=== PATIENT | female | born 1995 | race African-American/Black ===

== ENCOUNTER 2020-09-30 03:14 | Emergency (ER) | payer OTHER, SELFPAY ==
[2020-09-30 03:21] VITALS: BP 146/104; PULSE 100; RESP 14; TEMP 36.9; O2SAT 99
[2020-09-30] MEDS: FAMOTIDINE 20 MG/2 ML VIAL IV PUSH (03:42)
[2020-09-30] MEDS: diphenhydrAMINE HCl INJ 50 MG/ML VIAL 25 MG IV PUSH (03:42)
[2020-09-30] MEDS: methylPREDNISolone SOD SUCC 125 MG VIAL IV PUSH (03:42)
[2020-09-30 03:48] LABS: Basophils Percent Auto 0.4 % (0.2-1.2); Eosinophils Absolute Auto 0.2 K/mm3 (0-0.3); Eosinophils Percent Auto 2.5 % (0-4.4); Hematocrit 37.9 % (37.0-47.0); Hemoglobin 12.7 g/dL (12.0-15.0); Immature Granulocyte Absolute 0.01 K/mm3 (0.00-0.031); Immature Granulocyte Percent A 0.1 % (0-0.5); Lymphocytes Absolute Auto 2.49 K/mm3 (0.9-3.2); Lymphocytes Percent Auto 33.2 % (18.3-44.2); Mean Corpuscular HGB Conc 33.5 g/dl (32-36); Mean Corpuscular Hemoglobin 29.1 pg (26-34); Mean Corpuscular Volume 86.7 fl (80-100); Mean Platelet Volume 11.6 fl (7.4-10.4); Monocytes Absolute Auto 0.8 K/mm3 (0.1-0.6); Monocytes Percent Auto 10.1 % (2.6-8.5); Neutrophils Percent Auto 53.7 % (45.5-73.1); Platelet Count Result 217 k/mm3 (150-375); Red Blood Count 4.37 M/mm3 (4.2-5.4); Red Cell Distribution Width 12.6 % (11.5-14.5); White Blood Count 7.5 K/mm3 (4.5-10.0)
[2020-09-30] MEDS: EPINEPHrine HCL INJ 1 MG/ML AMPUL 0.3 MG IM (03:48)
[2020-09-30 03:57] LABS: Anion Gap 9 mmol/L (8-16); Blood Urea Nitrogen 7 mg/dL (7-17); Calcium 9.1 mg/dL (8.4-10.2); Carbon Dioxide 24 mmol/L (22-30); Chloride 108 mmol/L (98-107); Estimated CRCL calculation 118 ml/min; Estimated Glomerular Filt Rate > 60; Glucose 118 mg/dL (65-105); Potassium 3.6 mmol/L (3.4-5.0); Sodium 141 mmol/L (137-145)
[2020-09-30 04:19] VITALS: BP 140/83; PULSE 96; RESP 18; O2SAT 99
[2020-09-30 05:57] VITALS: BP 159/86; PULSE 75; RESP 20; O2SAT 97
--- NOTE | 2020-09-30 06:03 | ED.SOB ---
HPI - SOB/Dyspnea General Chief Complaint: Shortness of Breath/Dyspnea Stated Complaint: SOB, Left sided facial swelling Time Seen by Provider: 09/30/20 03:19 History of Present Illness HPI Narrative: Patient is a 24-year-old female who presents ER with concerns for allergic reaction. She was seen in urgent care yesterday for left facial swelling. She was told it is allergic reaction given a prescription for prednisone. Reports this evening she woke up and she felt like she could not breathe that her throat was closing her cough. No fevers or chills or sweats. No swelling of the tongue or lips. Patient does not take any oral medications. She has not think she ate any foods that she is allergic to. Denies fevers or chills or sweats. Has not had symptoms like this previously. No change in voice. Tolerating oral secretions. Related Data Allergies Allergy/AdvReac Type Severity Reaction Status Date / Time No Known Allergies Allergy Verified 02/21/19 21:09 Review of Systems Review of Systems: All systems reviewed & are unremarkable except as noted in HPI and below Constitutional: Constitutional: Denies chills, Denies fever(s) and Denies weakness ENT: Denies dysphagia, Denies nasal congestion and Denies sore throat Respiratory: Respiratory: Reports cough, Reports dyspnea and Denies wheezing PMFSH Past Medical History Medical History (Updated 09/30/20 @ 06:27 by Joselito Butts MD) Healthy female Exam Narrative: Exam Narrative: GENERAL: Anxious-appearing, well-nourished, and in no acute distress. HEAD: Normocephalic, atraumatic. EYES: PERRL and EOMI. ENT: Mucous membranes moist. Normal-appearing tongue and lips. Normal-appearing posterior oropharynx with uvula midline and nonedematous. Tonsils identified and without edema as well. Tolerating oral secretions. Apical abscess over tooth #12. NECK: Supple. CHEST: Clear to auscultation. No respiratory distress. Occasional faint/shallow coughing. HEART: Regular rate and rhythm. Normal peripheral pulses. ABDOMEN: Soft, nontender, nondistended. EXTREMITIES: Normal range of motion. No edema. SKIN: Warm, dry, no rash. Swelling beneath the left eye. No erythema or blistering. NEURO: Alert and oriented x3 Course Course Emergency Course: On reevaluation patient reports she now feels a new bump inside of her mouth. Upon visualization patient has an apical abscess that has started to spontaneously drain. Facial swelling is improving. Patient will be started on antibiotics. Unlikely patient had any sort of allergic reaction or impending airway. Discharge home. Vital Signs Vital signs: Vital Signs Temperature 98.4 F 09/30/20 03:21 Pulse Rate 100 09/30/20 03:21 Respiratory Rate 14 09/30/20 03:21 Blood Pressure 146/104 H 09/30/20 03:21 Pulse Oximetry 99 09/30/20 03:21 Temperature 98.4 F 09/30/20 03:21 Pulse Rate 75 09/30/20 05:57 Respiratory Rate 20 09/30/20 05:57 Blood Pressure 159/86 H 09/30/20 05:57 Pulse Oximetry 97 09/30/20 05:57 MDM - SOB/Dyspnea Lab Data Result diagrams: 09/30/20 03:39 09/30/20 03:39 Labs: Lab Results 09/30/20 09/30/20 Range/Units 03:39 03:39 WBC 7.5 (4.5-10.0) K/mm3 RBC 4.37 (4.2-5.4) M/mm3 Hgb 12.7 (12.0-15.0) g/dL Hct 37.9 (37.0-47.0) % MCV 86.7 (80-100) fl MCH 29.1 (26-34) pg MCHC 33.5 (32-36) g/dl RDW 12.6 (11.5-14.5) % Plt Count 217 (150-375) k/mm3 MPV 11.6 H (7.4-10.4) fl Immature Gran % (Auto) 0.1 (0-0.5) % Neut % (Auto) 53.7 (45.5-73.1) % Lymph % (Auto) 33.2 (18.3-44.2) % [place] % (Auto) 10.1 H (2.6-8.5) % Eos % (Auto) 2.5 (0-4.4) % Baso % (Auto) 0.4 (0.2-1.2) % Lymph # (Auto) 2.49 (0.9-3.2) K/mm3 [place] # (Auto) 0.8 H (0.1-0.6) K/mm3 Eos # (Auto) 0.2 (0-0.3) K/mm3 Baso # (Auto) 0.0 (0.0-0.1) K/mm3 Abs Immat Gran (auto) 0.01 (0.00-0.031) K/mm3 Absolute Neuts (auto) 4.0
[2020-09-30 06:54] VITALS: BP 144/80; PULSE 72; RESP 20; O2SAT 98
== END 2020-09-30 06:57 | disposition home or self-care (01) ==
PROVIDERS: Emergency Provider Emergency Medicine
DX: K04.7 Periapical abscess without sinus (principal); R06.02 Shortness of breath
CPT/HCPCS: 36415; 80048; 85025; 96372; 96374; 96375; 99284; J0171; J1200; J2930

== ENCOUNTER 2020-10-01 15:06 | Emergency (ER) | payer OTHER, SELFPAY ==
[2020-10-01 15:09] VITALS: BP 126/73; PULSE 72; RESP 20; TEMP 36.7; O2SAT 99
[2020-10-01 15:30] LABS: Basophils Percent Auto 0.1 % (0.2-1.2); Hematocrit 37.3 % (37.0-47.0); Hemoglobin 12.7 g/dL (12.0-15.0); Immature Granulocyte Absolute 0.09 K/mm3 (0.00-0.031); Immature Granulocyte Percent A 0.6 % (0-0.5); Lymphocytes Absolute Auto 1.25 K/mm3 (0.9-3.2); Lymphocytes Percent Auto 8.5 % (18.3-44.2); Mean Corpuscular Hemoglobin 29.1 pg (26-34); Mean Corpuscular Volume 85.6 fl (80-100); Mean Platelet Volume 11.4 fl (7.4-10.4); Monocytes Absolute Auto 0.5 K/mm3 (0.1-0.6); Monocytes Percent Auto 3.1 % (2.6-8.5); Neutrophils Absolute Auto 12.9 K/mm3 (1.3-6.7); Neutrophils Percent Auto 87.7 % (45.5-73.1); Platelet Count Result 253 k/mm3 (150-375); Red Blood Count 4.36 M/mm3 (4.2-5.4); Red Cell Distribution Width 12.8 % (11.5-14.5); White Blood Count 14.7 K/mm3 (4.5-10.0)
[2020-10-01 15:41] LABS: Alanine Aminotransferase 21 U/L (4-35); Albumin Level 4.5 g/dL (3.5-5.1); Alkaline Phosphatase 80 U/L (38-126); Anion Gap 10 mmol/L (8-16); Aspartate Amino Transferase 24 U/L (14-36); Bilirubin,Total 0.2 mg/dL (0.2-1.3); Blood Urea Nitrogen 9 mg/dL (7-17); Calcium 9.2 mg/dL (8.4-10.2); Carbon Dioxide 23 mmol/L (22-30); Chloride 108 mmol/L (98-107); Estimated CRCL calculation 119 ml/min; Estimated Glomerular Filt Rate > 60; Glucose 117 mg/dL (65-105); Lipase 60 U/L (23-300); Potassium 3.8 mmol/L (3.4-5.0); Sodium 141 mmol/L (137-145)
[2020-10-01 16:14] LABS: Add Urine Microscopic? YES; Appearance Urine Clear (Clear); Bilirubin Urine Negative (Negative); Blood Urine 3+ (Negative); Color Urine Yellow (Yellow); Glucose Urine UA Negative (Negative); Ketones Urine Negative (Negative); Leukocyte Esterase Ur Negative LEU/UL (Negative); Mucus Urine Few /lpf; Nitrate Urine Negative (Negative); Protein Urine Negative (Negative); RBC Urine >75 /hpf (0-2); Specific Grav Ur 1.027 (1.001-1.035); Squamous Epithelial Cell Urine Occasional /hpf (Few); Urobilinogen Urine Negative mg/dL (<2.0); WBC Urine 0-3 /hpf
[2020-10-01 17:12] VITALS: BP 127/76; PULSE 62; RESP 16; O2SAT 100
--- NOTE | 2020-10-01 17:21 | ED.NAVMDI ---
HPI - Nausea/Vomiting/Diarrhea General Chief complaint: Nausea/Vomiting/Diarrhea Stated complaint: n/v/d, sob Time Seen by Provider: 10/01/20 16:27 Source: patient Mode of arrival: ambulatory Limitations: no limitations History of Present Illness HPI Narrative: Patient is a 24-year-old female who presents complaining of nausea, vomiting, and diarrhea starting this a.m. Patient was seen and treated yesterday with dental abscess and facial swelling. Patient was started on Augmentin at that time. Patient reports nausea, vomiting and diarrhea after taking Augmentin this a.m. She denies abdominal pain. She denies facial pain or swelling. She denies all other complaints at this time. MD elicited complaint: nausea, vomiting and diarrhea Related Data Allergies Allergy/AdvReac Type Severity Reaction Status Date / Time No Known Allergies Allergy Verified 10/01/20 15:11 Review of Systems Review of Systems: Narrative: CONSTITUTIONAL: Denies fever, chills, or sweats. EYES: Denies visual changes, redness, or discharge. ENT: Denies rhinorrhea, congestion, sore throat, or otalgia. CARDIOVASCULAR: Denies chest pain, palpitations, or edema. RESPIRATORY: Denies cough or dyspnea. GASTROINTESTINAL: Reports nausea, vomiting, and diarrhea. GENITOURINARY: Denies dysuria or hematuria. SKIN: Denies rash or itching. MUSCULOSKELETAL: Denies back pain, joint pain, or myalgia. NEUROLOGIC: Denies headache, numbness, dizziness, or weakness. PSYCHIATRIC: Denies anxiety or depression. [facility] Past Medical History Medical History Healthy female Social History Social History (Updated 10/01/20 @ 17:27 by CAR Rivas) Smoking status: Never smoker Alcohol intake: current Alcohol use details: Occasional Substance use: never Comments At the time of signature, I have reviewed and agree with nursing past medical, surgical, social, and family history unless otherwise noted. Please see nursing chart for further information. There is no relevant family history pertinent to the presenting complaint. Exam Narrative: Exam Narrative: GENERAL: Well-appearing, well-nourished, and in no acute distress. HEAD: Normocephalic, atraumatic. EYES: EOMI. No redness or drainage. Conjunctiva are normal. ENT: Mucous membranes pink and moist. Apical abscess at tooth 12. No facial edema. Throat normal. Uvula midline. NECK: AROM. Supple. No lymphadenopathy. CHEST: No respiratory distress. HEART: Regular rate and rhythm. . GI: Soft, nontender without rebound, or guarding. No distention. Bowel sounds normal in all quadrants. MUSCULOSKELETAL: No bony tenderness. EXTREMITIES: Normal range of motion. No edema. SKIN: Warm, dry, no rash. NEURO: No focal deficits. Alert and oriented x3. Gait steady. PSYCH: Normal affect. No signs of depression or anxiety. Course Vital Signs Vital signs: Vital Signs Temperature 36.7 C 10/01/20 15:09 Pulse Rate 72 10/01/20 15:09 Respiratory Rate 20 10/01/20 15:09 Blood Pressure 126/73 10/01/20 15:09 Pulse Oximetry 99 10/01/20 15:09 Temperature 36.7 C 10/01/20 15:09 Pulse Rate 62 10/01/20 17:12 Respiratory Rate 16 10/01/20 17:12 Blood Pressure 127/76 10/01/20 17:12 Pulse Oximetry 100 10/01/20 17:12 Reviewed MDM - Nausea/Vomiting/Diarrhea MDM Narrative Medical decision making narrative: Patient's vital signs stable. Labs are unremarkable. Discussed with patient most likely related to the antibiotic that she is taking. Discussed adding an antinausea medicine with the Augmentin. Patient reports that she would like a different antibiotic. Patient will be started on clindamycin at this time. Patient is stable for discharge to home with outpatient follow-up as discussed. Differential Diagnosis Differential diagnosis: Likely food poisoning, gastroenteritis, drug-induced nausea and vomiting and dehydration Medical Records
[2020-10-01] MEDS: ONDANSETRON HCL ODT 4 MG TABLET PO (17:41)
== END 2020-10-01 17:43 | disposition home or self-care (01) ==
PROVIDERS: Emergency Medicine; Emergency Provider Nurse Practitioner
DX: R11.2 Nausea with vomiting, unspecified (principal); T36.0X5A Adverse effect of penicillins, initial encounter
CPT/HCPCS: 36415; 80053; 81001; 81025; 83690; 85025; 99283; A9270

== ENCOUNTER 2021-08-07 09:19 | Emergency (ER) | payer OTHER, SELFPAY ==
--- NOTE | ~2021-08-07 | XR_ITS ---
EXAMINATION: XR chest 1V portable DATE: 08/07/2021 09:37 INDICATION: Cough. Dyspnea. TECHNIQUE: A single frontal view of the chest was obtained. COMPARISON: CT abdomen and pelvis 02/21/2019 FINDINGS: There is no pneumonia, pleural effusion, or pneumothorax. The heart size is normal. IMPRESSION: 1. No acute cardiopulmonary disease. Reviewed, dictated and finalized at location A.
[2021-08-07 09:22] VITALS: BP 130/87; PULSE 100; RESP 17; TEMP 36.6; O2SAT 100
[2021-08-07 10:26] LABS: Influenza A QL RT-PCR Negative (Negative); Influenza B QL RT-PCR Negative (Negative); SARS-CoV-2 RNA PCR Positive
--- NOTE | 2021-08-07 10:35 | ED.URI ---
HPI - URI/Sore Throat General Chief Complaint: Upper Respiratory Infection Stated Complaint: cold symptoms Time Seen by Provider: 08/07/21 10:10 Source: patient Mode of arrival: ambulatory Limitations: no limitations History of Present Illness HPI Narrative: Pt is a 25 y/o female, presents to ED via POV with 3-4 day hx of URI symptoms, including nasal congestion, posterior rhinorrhea, dry cough and fevers/chills. Her last fever was last HS. She denies associated CP, SOB, abdominal pain, NVDC Or urinary symptoms. She has no known sick contacts or COV exposures. She is vaccinated for COV 19 MD elicited complaint: fever, cough, rhinorrhea and nasal congestion Onset (ago): day(s) (3) Consistency: constant Severity: mild Description of mucous: clear Able to tolerate fluids by mouth: Yes Exacerbating factors: nothing Relieving factors: nothing Associated symptoms: denies other symptoms (except as stated in HPI) Treatments prior to arrival: cold medicine Related Data Allergies Allergy/AdvReac Type Severity Reaction Status Date / Time No Known Allergies Allergy Verified 08/07/21 09:24 Review of Systems Review of Systems: All systems reviewed & are unremarkable except as noted in HPI and below ENT: Reports system reviewed and no additional complaints, except as documented and Reports as per HPI PMFSH Past Medical History Medical History Healthy female Social History Social History (Updated 10/01/20 @ 17:27 by Beata Alejo, CAR) Smoking status: Never smoker Alcohol intake: current Alcohol use details: Occasional Substance use: never Exam Const: General: no acute distress and alert Orientation/consciousness: patient oriented x3 HENMT: Head: normal to inspection Ears: TM's normal bilaterally General nose exam: Normal nares present Face and sinus: sinus tenderness maxillary Eyes: Conjunctivae: conjunctivae normal Pupils: Equal, round and reactive pupils present EOM: EOMs intact bilaterally Neck: Neck: normal visual inspection Chest: Chest palpation & inspection: normal inspection of the chest Resp: Effort & Inspection: normal respiratory effort Auscultation: clear to auscultation bilaterally Cardio: Rate: regular rate GI: GI Palp: Yes Soft to palpation Skin: General skin exam: normal color Rashes: no rashes Neuro: General: patient oriented x3, moves all extremities, no meningeal signs, no focal motor deficits and CN's II-XI intact bilaterally Cranial nerves: Yes Nystagmus not present Speech: normal speech Extrem: General: normal to inspection Psych: Appearance: grossly normal Mental Status: mental status grossly normal Affect: normal affect Attitude: cooperative Thought content: Yes Normal thought content present Course Course Emergency Course: Pts chest x ray and influenza are negative, COV is positive. Pt is low risk for severe illness and declines Paxlovid treatment. She is advised of plan to to treat with Cough suppressant, OTC vitamin D, C and Zinc are encouraged, pushing fluids, resting and inhaler for rescue if needed only. She will FU with her PCP in 1 week, returning to the ER if her condition worsens in any way Vital Signs Vital signs: Vital Signs Temperature 36.6 C 08/07/21 09:22 Pulse Rate 100 08/07/21 09:22 Respiratory Rate 17 08/07/21 09:22 Blood Pressure 130/87 08/07/21 09:22 Pulse Oximetry 100 08/07/21 09:22 Temperature 36.6 C 08/07/21 09:22 Pulse Rate 100 08/07/21 09:22 Respiratory Rate 17 08/07/21 09:22 Blood Pressure 130/87 08/07/21 09:22 Pulse Oximetry 100 08/07/21 09:22 MDM - URI/Sore Throat Differential Diagnosis Differential diagnosis: Likely upper respiratory infection, sinusitis, viral infection, influenza and other (COV 19) Medical Records Attestation: I reviewed the patient's medical records. Lab Data Attestation: I reviewed the patient's lab results. L
[2021-08-07 10:38] VITALS: O2SAT 98
== END 2021-08-07 10:48 | disposition home or self-care (01) ==
PROVIDERS: Emergency Medicine; Emergency Provider Nurse Practitioner Family
DX: U07.1 COVID-19 (principal)
CPT/HCPCS: 71045; 87502; 99283; C9803; U0003; U0005

== ENCOUNTER 2021-10-24 14:38 | Emergency (ER) | payer OTHER, SELFPAY ==
[2021-10-24] VITALS (12 sets, daily range): BP systolic 103–140; BP diastolic 59–72; PULSE 54–80; RESP 13–21; TEMP 36.3; O2SAT 95–100
--- NOTE | ~2021-10-24 | XR_ITS ---
LUMBAR SPINE INDICATION: Low back pain TECHNIQUE: 3 views lumbar spine COMPARISON: None FINDINGS: No fracture, subluxation or dislocation. No evidence for spondylolysis or spondylolisthesi s. Vertebral bodies and disk spaces are preserved. IMPRESSION: 1: No acute abnormality of the lumbar spine identified. Reviewed, dictated and finalized at location A.
--- NOTE | ~2021-10-24 | CT_ITS ---
EXAMINATION: CT BRAIN W/O DATE: 10/24/2021 17:13 INDICATION: Syncope TECHNIQUE: Computed tomography (CT) of the head was performed without intravenous contrast. The dose- length product was 605.33 mGy-cm. Automated exposure control and iterative reconstruction technique w ere employed. COMPARISON: No prior studies for comparison. FINDINGS: Normal brain parenchymal volume for age. Normal bustillos-white differentiation. No acute intrac ranial hemorrhage, infarction, mass or mass effect. No ventriculomegaly or midline shift. Midline sagittal images demonstrate a normal corpus callosum, c raniovertebral junction and sella turcica. Basilar cisterns are patent. Paranasal sinuses and mastoids are pneumatized. No depressed skull fractures. IMPRESSION: 1. No acute intracranial abnormality. Reviewed, dictated and finalized at location A.
--- NOTE | ~2021-10-24 | XR_ITS ---
XR thoracic spine 3V 10/24/2021 17:42 Indication: Lower thoracic pain Procedure: 3 views thoracic spine Comparison: No prior studies for comparison. Findings: Vertebral body heights are maintained. No fracture or traumatic malalignment. No paraspinal soft tissue abnormality. Pedicles intact. Surrounding osseous structures within normal limits. Impression: 1: No acute abnormality of the thoracic spine. Reviewed, dictated and finalized at location A. Impression: 1: No acute abnormality of the thoracic spine.
--- NOTE | 2021-10-24 14:46 | ECG_ITS ---
Measurements Intervals [place] Rate: 61 P: 38 TX: 139 QRS: 18 QRSD: 90 T: 7 QT: 388 QTc: 392 Interpretive Statements SINUS RHYTHM WITH SINUS ARRHYTHMIA BORDERLINE T WAVE ABNORMALITY- ANT/INF LEADS BORDERLINE ECG Electronically Signed On 10-24-2021 15:16:24 CDT by Willam Jenkins D.O.
[2021-10-24 15:15] LABS: Basophils Percent Auto 0.7 % (0.2-1.2); Eosinophils Absolute Auto 0.7 K/mm3 (0-0.3); Hematocrit 41.7 % (37.0-47.0); Hemoglobin 13.6 g/dL (12.0-15.0); Immature Granulocyte Absolute 0.01 K/mm3 (0.00-0.031); Immature Granulocyte Percent A 0.2 % (0-0.5); Lymphocytes Percent Auto 32.8 % (18.3-44.2); Mean Corpuscular HGB Conc 32.6 g/dl (32-36); Mean Corpuscular Hemoglobin 29.2 pg (26-34); Mean Corpuscular Volume 89.7 fl (80-100); Mean Platelet Volume 11.2 fl (7.4-10.4); Monocytes Absolute Auto 0.4 K/mm3 (0.1-0.6); Monocytes Percent Auto 6.2 % (2.6-8.5); Neutrophils Percent Auto 49.1 % (45.5-73.1); Platelet Count Result 232 k/mm3 (150-375); Red Blood Count 4.65 M/mm3 (4.2-5.4); Red Cell Distribution Width 13.1 % (11.5-14.5); White Blood Count 6.1 K/mm3 (4.5-10.0)
[2021-10-24 15:32] LABS: Alanine Aminotransferase 33 U/L (6-35); Albumin Level 4.4 g/dL (3.5-5.1); Alkaline Phosphatase 97 U/L (38-126); Anion Gap 8 mmol/L (8-16); Aspartate Amino Transferase 25 U/L (14-36); Bilirubin,Total 0.4 mg/dL (0.2-1.3); Blood Urea Nitrogen 9 mg/dL (7-17); Calcium 8.9 mg/dL (8.4-10.2); Carbon Dioxide 23 mmol/L (22-30); Chloride 110 mmol/L (98-107); Estimated CRCL calculation 78 ml/min; Estimated Glomerular Filt Rate > 60; Glucose 97 mg/dL (65-110); Potassium 3.8 mmol/L (3.4-5.0); Sodium 141 mmol/L (137-145)
--- NOTE | 2021-10-24 16:29 | ED.GENADULT ---
HPI - General Adult General Chief complaint: Nausea/Vomiting/Diarrhea Stated complaint: Lower Back Pain, Nausea Time Seen by Provider: 10/24/21 16:27 Source: patient Mode of arrival: ambulatory Limitations: no limitations History of Present Illness HPI narrative: Patient is a 25-year-old female who presents the ED with report of mid/lower back pain, nausea, and syncope. Patient reports having mid and low back pain for the past 1 week. 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 She has intermittently been taking ibuprofen at home. She also reports having nausea for the past 4 days. She denies any vomiting or abdominal pain. Denies any fever, chills, cough, cold symptoms, diarrhea, urinary symptoms. Today around 1230pm, while at a client's home, patient reports she had a syncopal episode. 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 Her client told her she lost consciousness for less than 1 minute. She did not fall from the chair or hit her head. She denies having any prodromal symptoms prior to the syncopal episode, but states she had dizziness afterwards for approximately 15 minutes. Denies dizziness currently. Denies any headache, vision changes, chest pain, difficulty breathing. Related Data Allergies Allergy/AdvReac Type Severity Reaction Status Date / Time No Known Allergies Allergy Verified 10/24/21 17:01 Review of Systems Review of Systems: CONSTITUTIONAL: Denies fever, chills, or sweats. EYES: Denies visual changes. ENT: Denies rhinorrhea, congestion, sore throat. CARDIOVASCULAR: Denies chest pain. RESPIRATORY: Denies cough or dyspnea. GASTROINTESTINAL: Reports nausea. Denies abdominal pain, vomiting, or diarrhea. GENITOURINARY: Denies dysuria or hematuria. MUSCULOSKELETAL: Reports mid/low back pain. NEUROLOGIC: Reports syncope, dizziness. Denies headache, HI, numbness, tingling, or weakness. All systems reviewed & are unremarkable except as noted in HPI and below PMFSH Past Medical History Medical History (Updated 10/24/21 @ 20:25 by Nancy Black PA-C) Healthy female No pertinent past medical history Surgical History Surgical History (Updated 10/24/21 @ 17:09 by Nancy Black PA-C) No pertinent past surgical history Social History Social History Smoking status: Never smoker Alcohol intake: current Alcohol use details: Occasional Substance use: never Exam Narrative: GENERAL: Well appearing, well-nourished, non-toxic, in no acute distress. HEAD: Normocephalic, atraumatic. EYES: PERRL/EOMI, conjunctivae clear bilaterally. No nystagmus. NECK: Supple. No adenopathy, no masses. RESPIRATORY: Airway patent, respirations nonlabored. Clear to auscultation bilaterally, no rales, rhonchi, wheezing. CARDIOVASCULAR: Regular rate and rhythm without murmurs, rubs, or gallops. Peripheral pulses 2+ and equal bilaterally. ABDOMINAL: Soft, no tenderness to palpation, nondistended, no hepatosplenomegaly. Normoactive BS. MUSCULOSKELETAL: Moves all extremities. Strength/ROM intact without gross deformities. Tenderness to palpation to lower thoracic, upper lumbar midline spine. SKIN: Warm, dry, normal color. No rashes. NEURO: A&O X3. Speech clear. Cranial nerves II-XII intact. Steady gait. No ataxic movements. Strength 5/5 in upper/lower ext bilaterally. PSYCHIATRIC: Appropriate mood and affect. Normal interaction. Course Vital Signs Vital signs: Vital Signs Temperature 97.4 F L 10/24/21 14:43 Pulse Rate 64 10/24/21 14:43 Respiratory Rate 16 10/24/21 14:43 Blood Pressure 140/59 L 10/24/21 14:43 Pulse Oximetry 100 10/24/21 14:43 Oxygen Delivery Room Air 10/24/21 14:43 Temperature 97.4 F L 10/24/21 14:43 Pulse Rate 64 10/24/21 14:43 Respiratory Rate 16 10/24/21 14:43 Blood Pressure 140/59 L
[2021-10-24] MEDS: SODIUM CHLORIDE 0.9% IV 1,000 ML 999 ML IV CONT (17:21)
[2021-10-24 17:29] LABS: Add Urine Microscopic? YES; Appearance Urine Cloudy (Clear); Bilirubin Urine 1+ (Negative); Blood Urine 3+ (Negative); Color Urine Red (Yellow); Glucose Urine UA Negative (Negative); Ketones Urine Trace mg/dL (Negative); Leukocyte Esterase Ur Negative LEU/UL (Negative); Nitrate Urine Negative (Negative); Protein Urine 2+ mg/dL (Negative); Specific Grav Ur >= 1.030 (1.001-1.035); pH Urine 5.5 (5.0-9.0)
[2021-10-24 17:35] LABS: Mucus Urine Few /lpf; RBC Urine >75 /hpf (0-2); WBC Urine 0-3 /hpf
[2021-10-24] MEDS: ONDANSETRON INJ 4 MG/2 ML VIAL IV PUSH (17:53)
[2021-10-24] MEDS: KETOROLAC 30 MG/ML VIAL (*BKC) IV PUSH (20:20)
[2021-10-24] MEDS: METOCLOPRAMIDE HCL INJ 10 MG/2 ML VIAL IV PUSH (20:20)
== END 2021-10-24 21:12 | disposition home or self-care (01) ==
PROVIDERS: Physician Assistant; Emergency Provider Emergency Medicine
DX: S39.012A Strain of muscle, fascia and tendon of lower back, initial encounter (principal); R55 Syncope and collapse; R11.2 Nausea with vomiting, unspecified; X50.0XXA Overexertion from strenuous movement or load, initial encounter; R94.31 Abnormal electrocardiogram [ECG] [EKG]
CPT/HCPCS: 36415; 70450; 72072; 72100; 80053; 81001; 81025; 85025; 93005; 96361; 96374; 96375; 99284; J0131; J1885; J2405; J2765; J7030

== ENCOUNTER 2022-12-04 07:21 | Emergency (ER) | payer OTHER, SELFPAY ==
[2022-12-04] VITALS (16 sets, daily range): BP systolic 103–111; BP diastolic 63–71; PULSE 71–96; RESP 12–22; TEMP 36.8; O2SAT 95–100
--- NOTE | ~2022-12-04 | XR_ITS ---
EXAMINATION: XR chest 1V portable INDICATION: Cough and body aches TECHNIQUE: Portable AP chest at 0807 hours COMPARISON: 08/07/2021 FINDINGS: The lungs are free of acute opacities. No pleural effusion or pneumothorax. The cardiomedia stinal silhouette is normal. The visualized bones and soft tissues are unremarkable. IMPRESSION: 1. No acute cardiopulmonary abnormality. Reviewed, dictated and finalized at location A.
--- NOTE | 2022-12-04 07:51 | ED.URI ---
HPI - URI/Sore Throat General Chief Complaint: Upper Respiratory Infection Stated Complaint: URI Time Seen by Provider: 12/04/22 07:28 Source: patient Limitations: no limitations History of Present Illness HPI Narrative: 26 yo F presenting to the ED for URI symptoms since Thursday. States nasal congestion, soft brown stools, chills, cough productive of brown sputum, post-nasal drip; all of which began Thursday. She tried Mucinex and inhaler with mild relief. Denies taking temperature at home. Denies sick contacts. LMP was 11/26-11/30. Denies sore throat, chest pain, shortness of breath, allergen exposure, dysuria, abnormal vaginal discharge, recent injuries, recent illness, nausea, vomiting, headache, abdominal pain. Onset (ago): day(s) Consistency: constant Severity: mild Description of mucous: yellow (yellow-brown) Able to tolerate fluids by mouth: Yes Exacerbating factors: nothing Relieving factors: OTC cold medicine Related Data Allergies Allergy/AdvReac Type Severity Reaction Status Date / Time No Known Allergies Allergy Verified 12/04/22 07:32 Review of Systems Review of Systems: A 10 system review of systems was completed on the patient and is negative except for what is stated in the HPI. Nursing and ancillary documentation was reviewed. [facility] Past Medical History Medical History (Updated 12/05/22 @ 00:00 by Dereck Yanez) Healthy female No pertinent past medical history Surgical History Surgical History (Updated 10/24/21 @ 17:09 by Nancy Orantes PA-C) No pertinent past surgical history Social History Social History Smoking status: Never smoker Alcohol intake: current Alcohol use details: Occasional Substance use: never Comments At time of signature, I have reviewed and agree with nursing past medical, surgical, social and family history unless otherwise noted. Please see the nursing chart for further information. There is no relevant family history pertinent to the presenting complaint. Exam Narrative: CONST: No acute distress. Well nourished. HENMT: Head is normocephalic and atraumatic. Moist mucous membranes. No posterior oropharynx erythema. Mild nasal turbinate edema bilaterally. No nasal discharge. No sinus tenderness to palpation. Bilateral ears with tympanic membranes pink and pearly without bulging or erythema. Bilateral ear canals are clear and without erythema. EYES: No conjunctival icterus, injection, or pallor. PERRL. NECK: No meningeal signs. No cervical lymphadenopathy. RESP: Able to speak in full sentences. Normal respiratory effort. CTAB. CARDIO: Regular rate. Regular rhythm. 2+ DP and radial pulses bilaterally. GI: Nondistended. No tenderness to palpation. Soft. : No CVA tenderness to palpation. SKIN: No rashes or lesions noted on exposed skin. NEURO: Oriented x3. Moves all extremities. EXTREM: No pedal edema. PSYCH: Normal affect. Course Vital Signs Vital signs: Vital Signs Temperature 98.3 F 12/04/22 07:27 Pulse Rate 86 12/04/22 07:27 Respiratory Rate 19 12/04/22 07:27 Blood Pressure 111/69 12/04/22 07:27 Pulse Oximetry 100 12/04/22 07:27 Oxygen Delivery Room Air 12/04/22 07:27 Temperature 98.3 F 12/04/22 07:27 Pulse Rate 81 12/04/22 09:01 Respiratory Rate 22 H 12/04/22 09:01 Blood Pressure 107/69 12/04/22 09:01 Pulse Oximetry 97 12/04/22 09:01 Oxygen Delivery Room Air 12/04/22 07:32 MDM - URI/Sore Throat MDM Narrative Medical decision making narrative: Patient presents as noted above. Vitals stable. Appears in no acute distress. Patient presented with symptoms suspicious for likely viral upper respiratory infection. Differential includes bacterial pneumonia, sinusitis, allergic rhinitis, bronchitis. Do not suspect underlying cardiopulmonary process. Patient is nontoxic appearing and not in need of emergent medical intervention. Edwardo
[2022-12-04 08:37] LABS: Influenza A QL RT-PCR Negative (Negative); Influenza B QL RT-PCR Negative (Negative); SARS-CoV-2 RNA PCR Negative (Negative)
== END 2022-12-04 09:13 | disposition home or self-care (01) ==
PROVIDERS: Emergency Provider Student in an Organized Health Care Education/Training Program
DX: J06.9 Acute upper respiratory infection, unspecified (principal); Z20.822 Contact with and (suspected) exposure to COVID-19
CPT/HCPCS: 71045; 87636; 99283